=== PATIENT | female | born 1975 | race Caucasian/White ===

== ENCOUNTER 2021-09-21 11:25 | Emergency (ER) | payer OTHER, MEDICAID ==
[~2021-09-21] VITALS: Ht 165.1 cm; Wt 95.3 kg
[2021-09-21 11:30] VITALS: BP_SYST 124
[2021-09-21] MEDS ORDERED: EPINEPHRINE HCL/PF 1 MG/ML AMP IM ONE (12:00)
[2021-09-21] MEDS ORDERED: FAMOTIDINE 20 MG TABLET PO ONE (12:00)
[2021-09-21] MEDS ORDERED: predniSONE 20 MG TABLET PO ONE (12:00)
[2021-09-21] MEDS ORDERED: FAMOTIDINE PF 20 MG/2 ML VIAL IVP ONE (12:00)
[2021-09-21] MEDS ORDERED: PRED20TA PO (12:58)
[2021-09-21] MEDS ORDERED: DIPH25CA83 PO (12:58)
[2021-09-21] MEDS ORDERED: EPIN0.3P3 IM (12:58)
[2021-09-21 13:35] VITALS: BP_SYST 114
== END 2021-09-21 13:35 | disposition home or self-care (01) ==
LOC: SED 11:25
DX: L50.0 Allergic urticaria (principal)
CPT/HCPCS: 96372; 96374; 99284; J0171; J3490; J7512

== ENCOUNTER 2022-07-28 17:57 | Emergency (ER) | payer OTHER, MEDICAID ==
[~2022-07-28] VITALS: Ht 162.6 cm; Wt 101.2 kg
[~2022-07-28 17:57] MED LIST: DIPH25CA83 PO; EPIN0.3P3 IM; PRED20TA PO
--- NOTE | 2022-07-28 18:00 | NUR ---
Patient to ER bed 01 to gown for evaluation. Side rails up.
[2022-07-28 18:02] VITALS: BP_SYST 160
--- NOTE | 2022-07-28 18:15 | NUR ---
ASSUMED CARE OF A&OX 4 PT WITH CLEAR SPEECH AND PATENT AIRWAY WHO IS NOT POST ICTAL AND HAS NO C/O DIZZINESS. PT REPORTS THAT FAMILY CALLED 911 AFTER SHE HAD ATLEAST HER 3RD GRAND MAL SEIZURE TODAY.PT REPORTS THAT AFTER THE DOSING OF HER SYNTHROID WAS CHANGED A WEEK AGO SHE HAS BEEN HAVING MULTIPLE SEIZURES A DAY. PT ALSO REPORTS AN EXTENSIVE PMH AND BEING ABLE TO TAKE SEIZURE MEDICATIONS FOR A VERY LONG TIME AND INSTEAD SHE TAKES CBD. 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 VSS.
--- NOTE | 2022-07-28 18:30 | NUR ---
MD AT BEDSIDE TO EVALUATE PT.
[2022-07-28] MEDS ORDERED: MECL-109 PO (18:54)
[2022-07-28 19:29] VITALS: BP_SYST 118
--- NOTE | 2022-07-28 19:29 | NUR ---
Patient given written and verbal discharge instructions and verbalizes understanding. ER MD discussed with patient the results and treatment provided. Patient in stable condition. ID arm band removed. Rx SENT TO PHARMACY. Opportunity for questions provided and answered. Medication side effect fact sheet provided. PT DC'D WITH A STEADY GAIT AND WITHOUT C/O DIZZINESS.
== END 2022-07-28 19:29 | disposition home or self-care (01) ==
LOC: SED 17:57
DX: G40.909 Epilepsy, unspecified, not intractable, without status epilepticus (principal); R42 Dizziness and giddiness; Z88.0 Allergy status to penicillin; Z88.2 Allergy status to sulfonamides; Z88.6 Allergy status to analgesic agent; Z88.8 Allergy status to other drugs, medicaments and biological substances; Z79.899 Other long term (current) drug therapy
CPT/HCPCS: 99282

== ENCOUNTER 2022-09-08 01:54 | Emergency (ER) | payer OTHER, MEDICAID ==
[~2022-09-08] VITALS: Ht 162.6 cm; Wt 99.8 kg
[~2022-09-08 01:54] MED LIST changes: +MECL-109 PO
[2022-09-08 02:00] VITALS: BP_SYST 133
[2022-09-08] MEDS ORDERED: NACL 0.9% 1,000 ML IV ONE (04:30)
[2022-09-08] MEDS ORDERED: ONDANSETRON HCL 4 MG/2 ML VIAL IVP ONE (04:30)
[2022-09-08 04:59] LABS: BILIRUBIN,URINE NEGATIVE (NEGATIVE); BLOOD, URINE NEGATIVE (NEGATIVE); CLARITY/URINE CLEAR (CLEAR); COLOR,URINE YELLOW (YELLOW); GLUCOSE,URINE NEGATIVE (NEGATIVE); KETONES,URINE NEGATIVE (NEGATIVE); LEUKOCYTE ESTERASE ,URINE NEGATIVE (NEGATIVE); NITRITE, URINE NEGATIVE (NEGATIVE); PROTEIN URINE NEGATIVE (NEGATIVE); UROBILINOGEN,URINE 0.2 (0.2-1.0)
[2022-09-08 05:04] LABS: CREATININE 0.82 mg/dL (0.55-1.30)
[2022-09-08 05:08] LABS: ALBUMIN 3.6 g/dL (3.4-4.8); TOTAL BILIRUBIN 0.2 mg/dL (0.0-1.0)
[2022-09-08] MEDS ORDERED: METOCLOPRAMIDE HCL 10 MG/2 ML VIAL IVP ONE (05:15)
[2022-09-08] MEDS ORDERED: DIPHENHYDRAMINE INJ 50 MG/ML VIAL IVP ONE (05:15)
[2022-09-08 05:23] LABS: BASOPHILS % (AUTO) 0.5 % (0.0-2.0); EOSINOPHILS # (AUTO) 0.1 K/uL (0.0-0.4); EOSINOPHILS % (AUTO) 1.5 % (0.0-4.0); HEMATOCRIT 38.5 % (36-48); HEMOGLOBIN 12.9 g/dL (12.0-16.0); LYMPHOCYTES # (AUTO) 3.1 K/uL (1.0-5.5); MEAN CORPUSCULAR HEMOGLOBIN 28 pg (27-31); MEAN CORPUSCULAR HGB CONC 34 % (32-36); MEAN CORPUSCULAR VOLUME 82 fL (79.0-98.0); MONOCYTES # (AUTO) 0.5 K/uL (0.0-1.0); MONOCYTES % (AUTO) 5.8 % (1.7-9.3); NEUTROPHILS # (AUTO) 4.6 K/uL (1.8-7.7); NEUTROPHILS % (AUTO) 55.2 % (40.0-70.0); PLATELET COUNT (AUTO) 175 K/uL (130-430); RED CELL DISTRIBUTION WIDTH 14.6 % (9.0-15.0); WHITE BLOOD COUNT (AUTO) 8.3 K/uL (4.8-10.8)
[2022-09-08] MEDS ORDERED: HYDR-3917 PO (06:59)
[2022-09-08 07:14] VITALS: BP_SYST 136
== END 2022-09-08 07:13 | disposition home or self-care (01) ==
LOC: SED 01:54
DX: R10.31 Right lower quadrant pain (principal); Z88.0 Allergy status to penicillin; Z88.2 Allergy status to sulfonamides; Z88.6 Allergy status to analgesic agent; Z88.8 Allergy status to other drugs, medicaments and biological substances; Z79.899 Other long term (current) drug therapy
CPT/HCPCS: 99285; 74177; 96374; 96361; 96375; 80053; 83690; 85025; 36415; 76376; 81025; 81003; J1200; J2765; Q9967; J7030; J2405